=== PATIENT | female | born 1940 | race Caucasian/White ===

== ENCOUNTER → 2017-06-20 | Outpatient (CLI) | payer MEDICARE, MEDICAID ==
[2013-08-15 11:12] VITALS: BMI 40.5
[~2017-06-20] MED LIST: ACET500T68 PO; ASPI-757 PO; AZIT500T47 PO; BACDS PO; BUP100 PO; BUS10 PO; CAR350 PO; CLI150 PO; CYC10 PO; CYCL-332 PO; CYCL10TA29 PO; ENAL20TA99 PO; ENALAPRIL; FLUO-202 PO; GAB300 PO; GLUC-198 PO; HCTZ25 PO; HYDR-3250 PO; HYDR25CA13 PO; HYDROXYPAM PO; IBUP200C71 PO; LEVO50TA80 PO; LOR5 PO; LUTE20CA11 PO; MET500 PO; METFORMIN; METR-1 PO; MULT-785 PO; NIAC500C17 PO; OXYGEN; PRAV10TA45 PO; PRED-314 PO; PROZAC; RANI300C8 PO; SITA100T9 PO; TRAM-420 PO; TRAZ-133 PO; VIT1CAPS34 PO; [UNRECOGNIZED DRUG - CODE] PO
--- NOTE | 2017-06-20 13:27 | RADIOLOGY IMAGING REPORT ---
FACILITY: [facility] PATIENT NAME: Danae Bolton : 1940 MR: [id number] V: [id number] EXAM DATE: ORDERING PHYSICIAN: ALEENA GUNTER TECHNOLOGIST: Location: [facility] - [place] Patient: Danae Bolton : 1940 Visit/Account:[id number] Date of Sevice: 06/20/2017 THORACIC SPINE 3 VIEWS HISTORY: Pain COMPARISON: None FINDINGS: 3 views of the thoracic spine were obtained. The visualized vertebral bodies exhibit normal height without spondylolisthesis. No significant dege nerative changes. There is no evidence of compression fracture. There is no evidence of lytic or hai tic bony lesions. IMPRESSION: No acute fracture or spondylolisthesis. Report Dictated By: Gordon Leon at 06/20/2017 1:22 PM Report E-Signed By: Gordon Leon at 06/20/2017 1:23 PM WSN:[id number]
--- NOTE | 2017-06-20 13:33 | RADIOLOGY IMAGING REPORT ---
FACILITY: [facility] PATIENT NAME: Danae Bolton : 1940 MR: [id number] V: [id number] EXAM DATE: ORDERING PHYSICIAN: ALEENA GUNTER TECHNOLOGIST: [place] [facility] [place] Patient: Danae Bolton : 1940 Visit/Account:[id number] Date of Sevice: 06/20/2017 Study: Lumbar spine series Indication: Low back pain Comparison study: November 15, 2012 Findings: AP, lateral, and cone-down lateral views of the lumbar spine demonstrates the presence of a grade I anterolisthesis at the L4-5 level. This is new as compared to the previous study. There is n o evidence of compression fracture. There is mild degenerative disease present. There is no evidence of lytic or blastic bony lesion IMPRESSION: Grade I anterolisthesis at the L4-L5 level. This is new as compared to the previous study . Report Dictated By: Gordon Leon at 06/20/2017 1:25 PM Report E-Signed By: Gordon Leon at 06/20/2017 1:29 PM WSN:[id number]
--- NOTE | 2017-06-20 14:12 | RADIOLOGY IMAGING REPORT ---
FACILITY: [facility] [place] PATIENT NAME: Danae Bolton : 1940 MR: [id number] V: [id number] EXAM DATE: ORDERING PHYSICIAN: ALEENA GUNTER TECHNOLOGIST: Location: [facility] Patient: Danae Bolton : 1940 Visit/Account:[id number] Date of Sevice: 06/20/2017 CAROTID HISTORY: Bilateral carotid stenosis COMPARISON: February 16, 2014 FINDINGS: Grayscale, duplex and color Doppler interrogation of the extracranial carotid and vertebral arteries was performed bilateral. On the right, peak systolic velocities within the common and internal carotid arteries are 81 and 97. 4 cm/sec respectively. Mild to moderate amount of plaque is present the right carotid bulb extending into the proximal right internal carotid artery. Antegrade flow within the common, internal and ext ernal carotid arteries as well as vertebral artery. ICA/CCA ratio 1.3. On the left, peak systolic velocities within the common and internal carotid arteries are 111 and 123 cm/sec respectively. There is at least a moderate amount of plaque identified at the left carotid b ulb extending into the proximal left internal carotid artery. Antegrade flow within the common, inte rnal and external carotid arteries as well as vertebral artery. ICA/CCA ratio 1.6. IMPRESSION: There is a mild to moderate amount of plaque right carotid bulb extending into the proximal right int ernal carotid artery with peak systolic velocities consistent with less than 50% stenosis as opposed to a 50-75% stenosis previously Moderate amount of plaque at the left carotid bulb extending into the proximal left internal carotid artery. The peak systolic velocities in the left ICA are also consistent with a less than 50% stenos is as opposed to a 50-75% stenosis previously. The peak systolic velocity in the left carotid bulb is slightly elevated at 135 cm/s Velocity criteria are extrapolated from diameter data as defined by the Society of Radiologists in Ul trasound Consensus Conference Radiology 2003; 229;340-346 Report Dictated By: Jennie Mullins MD at 06/20/2017 2:02 PM Report E-Signed By: Jennie Mullins MD at 06/20/2017 2:09 PM WSN:[email or web address]
--- NOTE | 2017-06-23 08:48 | RADIOLOGY IMAGING REPORT ---
[place] [facility] [place]IENT NAME: SAMI CALDERON : [id number] MR: [id number] V: [id number] EXAM DATE: ORDERING PHYSICIAN: ALEENA GUNTER TECHNOLOGIST: Caro Ramirez EXAMINATION:TWO-DIMENSIONAL ECHOCARDIOGRAPH REASON:SYSTOLIC HEART MURMUR 2D Measurements (normal values in centimeters) LV endLV endRV endVent.LV PostAorticLeftPercent DiastolicSystolicDiastolicSeptumWallRootAtriumShortening (3.5-5.7)(0.9-2.6)(0.6-1.1)(0.6-1.1)(2.0-3.7)(1.9-4.0)(25-35%) [id number]% STROKE VOLUME: 66ml ESTIMATED EJECTION FRACTION: 54% PARASTERNAL LONG AXIS: Overall left ventricular systolic function appears to be normal. Chamber sizes are normal with the right ventricle being the upper range of normal in size. There is mild left ventricular thickening somewhat asymmetric more along the posterior wall but no evidence for any outflow tract obstruction. The aortic valve is mildly calcified but does not appear to be stenotic. Mitral valve appears to open normally. Color examination of the valves reveals a trace of mitral and tricuspid insufficiency. Color examination of the aortic valve was unremarkable. PARASTERNAL SHORT AXIS: Again overall left ventricular function appears to be normal. No specific wall motion abnormalities are noted. Aortic valve is trileaflet in configuration and appears to open normally. There is some aortic sclerosis. Color examination of pulmonic valve reveals a trace of pulmonic insufficiency. APICAL FOUR AND TWO CHAMBER: Normal left ventricular systolic function. Aortic valve area and mitral valve area both measure within normal ranges at 1.7 and 1.6cm2 respectively. The mean pressure gradient across the aortic valve is 9mm Hg. Dimensionless index is .8. Tricuspid regurgitation Vmax measure 1.7m/sec. Trace of tricuspid insufficiency is noted in this view. SUBCOSTAL VIEW: No pericardial effusion was noted. No atrioseptal or ventriculoseptal defects were appreciated. The TAPSE of the right ventricle is measured at 2.2 which was within normal ranges. The IVC is normal in size. Doppler examination of the mitral valve in diastole does reveal the A wave > E wave. OVERALL IMPRESSION: 1. Normal left ventricular ejection fraction of approximately 54% with a mild Grade 1 decrease in diastolic function. 2. Mild somewhat asymmetric left ventricular thickening more along the posterior wall but no evidence for any outflow tract obstruction. Chamber sizes are normal. 3. A sclerotic but not stenotic aortic valve. The valve area is measured at the lower range of normal 1.7cm2 with a mean pressure gradient of 9mm Hg and a dimensionless index of .8. 4. A trace of mitral, tricuspid and pulmonic insufficiency. The estimated right ventricular systolic pressures were measured within normal ranges at 15mm Hg. No other abnormalities were noted. Dictated by: Stacy Machuca M.D. on 06/20/2017 at 15:22 Transcribed by: JOSIAH on 06/23/2017 at 8:44 Approved by: Stacy Machuca M.D. on 06/23/2017 at 8:47 [facility]
== END ==
LOC: US 03:49
PROVIDERS: ATTEND Family Medicine
DX: I50.30 Unspecified diastolic (congestive) heart failure (principal); I51.7 Cardiomegaly; I25.10 Atherosclerotic heart disease of native coronary artery without angina pectoris; I34.0 Nonrheumatic mitral (valve) insufficiency; I07.1 Rheumatic tricuspid insufficiency; I37.1 Nonrheumatic pulmonary valve insufficiency
CPT/HCPCS: 72072; 72100; 93306; 93880

== ENCOUNTER 2017-12-05 09:45 | Outpatient (RCR) | payer MEDICARE, MEDICAID ==
[2013-08-15 11:12] VITALS: BMI 40.5
--- NOTE | 2017-09-09 08:25 | PT INITIAL EVALUATION ---
MEDICAL DIAGNOSIS: Chronic Low Back Pain TREATMENT DIAGNOSIS: Thoracic Pain, Decreased Posture DATE OF ONSET: 09/08/17 SUBJECTIVE: Danae is a 76 year-old female presenting to physical therapy following a recent increased in chronic back pain. Pt reports that she has had back pain for 20+ years and that it comes and goes. Recently it seems to be bothering her more and she has been feeling more restricted by it. Pt previously was taking muscle relaxants for it but is trying to work away from those. She reports that the pain sometimes will get so bad that she can't get out of bed rated at a 9/10 with radiating pain from the mid thoracic spine to the neck with occasional headaches as well as wrapping around the sides L>R to the stomach. Pt reports that heat seems to help as well as moving around more. Pain is worse with prolonged inactivity. Pt uses Tylenol currently every 4 hours to manage pain. Pain is currently rated as a 2-3/10 and is located in the thoracic spine and to the left side of her back only. REHAB PROBLEM LIST: Increased Pain Decreased ROM Decreased Function Decreased ADL's Decreased Mobility PREVIOUS MEDICAL HISTORY: See EMR OBJECTIVE: Posture: Posture significant for rounded forward shoulders with increased upper trapezius tension and shoulder elevation L>R. ROM: Thoracic ROM: Ext: minimally restricted "feels stiff", flex: full with muscle pull sensation, L rotation: minimally restricted with muscle tension, L rotation: full with muscle tension Palpation: Pt is tender to palpation from T2-T6 along the spine as well as out to the medial L scapular border. Pt has a slight R rotation of T3-5 vertebrae with L displacement of spinous processes. Sensation: Pt reports no numbness or tingling in B UE. Special Tests: Thoracic Repeated Movement Screen: Ext: pain centralized to T 2-4 , flex: pain periphrealized to T2-6 again, L rotation: pain centralized to T2-4 and in from scapular border, L rotation with ext: pain centralized to T3-4 in the thoracic spine only. ASSESSMENT: Danae shows signs and symptoms consistent with acute on chronic thoracic dysfunction. Physical therapy is indicated to address the above listed deficits in mobility, posture and pain to improve pt function with ADL's. Short Term Goals In 2 weeks pt will centralize pain to the thoracic spine only for decreased pain and improved function with ADL's. In 4 weeks pt will have no thoracic or cervical pain at rest for improved function with ADL's. In 4 weeks pt will improve thoracic ROM to without restrictions or pain for improved function with ADL's. In 4 weeks pt will be compliant with HEP for maintenance of chronic pain for improved function with ADL's. Patient's Goals Decrease pain. PLAN: Patient to be seen for Manual Therapy/STM/MET Strengthening/condition Ice/Heat Range of Motion Spinal Stabilization Ultrasound Stretching Iontophoresis Neuromuscular Re-ed Closed Chain Program Electrical Stim Posture/Body mechanics Biofeedback Home Exercise Program Mech./Manual Traction Therapeutic Activities 2-3x/Week for 4 Weeks If you have any questions, comments, or concerns about this report or plan, please contact me at . Thank you, Africa Matamoors, PT, DPT, CL MTDD
--- NOTE | 2017-10-24 09:23 | PT PLAN OF CARE ---
Physician: Frankie Atkins MD Patient is being seen: 2-3x/Week Therapist: Africa Matamoros, PT, DPT, CLT Medical Diagnosis: Chronic Low Back Pain Treatment Diagnosis: Thoracic Pain, Decreased Posture Date of Onset: 09/08/17 Date of Initial Evaluation: 09/08/17 Date patient was last seen: 10/23/17 Number of treatments: 12 Number of cancellations/No shows: 2 INTERVENTIONS: Manual Therapy/STM/MET Strengthening/condition Ice/Heat Range of Motion Spinal Stabilization Ultrasound Stretching Iontophoresis Neuromuscular Re-ed Closed Chain Program Electrical Stim Posture/Body mechanics Biofeedback Home Exercise Program Mech./Manual Traction Therapeutic Activities GOALS: In 2 weeks pt will centralize pain to the thoracic spine only for decreased pain and improved function with ADL's. MET In 4 weeks pt will have no thoracic or cervical pain at rest for improved function with ADL's. In 4 weeks pt will improve thoracic ROM to without restrictions or pain for improved function with ADL's. In 4 weeks pt will be compliant with HEP for maintenance of chronic pain for improved function with ADL's. PATIENT'S GOAL: Decrease pain. Status of Patient's Goals: 03/13 MET Patient Compliance: Fair Prognosis: Good Reasons for continuing therapy: Danae shows excellent progress with reduction of pain and centralization of symptoms with repeated L thoracic mobility. However, progress is inconsistent at home secondary to changing compliance with HEP. Following last PT session pt reported pain absent at the end of session except with palpation and only at the T4-5 level. Pt shows improved thoracic mobility with increased core stability as well for performance of ADL's. Posture: Posture significant for rounded forward shoulders with increased upper trapezius tension and shoulder elevation L>R. ROM: Thoracic ROM: Ext: minimally restricted "feels stiff", flex: full with muscle pull sensation, L rotation: minimally restricted with muscle tension, L rotation: full with muscle tension Palpation: Pt is tender to palpation from T2-T6 along the spine as well as out to the medial L scapular border. Pt has a slight R rotation of T3-5 vertebrae with L displacement of spinous processes. Special Tests: Thoracic Repeated Movement Screen: Ext: pain centralized to T 2-4 , flex: pain periphrealized to T2-6 again, L rotation: pain centralized to T2- 4 and in from scapular border, L rotation with ext: pain centralized to T3-4 in the thoracic spine only. If you have any questions or concerns, please feel free to contact me at . Thank you, Africa Matamoros, PT, DPT, CLT ENRIQUED
--- NOTE | 2017-11-24 10:52 | PT PLAN OF CARE ---
Physician: Frankie Atkins MD Patient is being seen: 2-3x/Week Therapist: Africa Matamoros, PT, DPT, CLT Medical Diagnosis: Chronic Low Back Pain Treatment Diagnosis: Thoracic Pain, Decreased Posture Date of Onset: 09/08/17 Date of Initial Evaluation: 09/08/17 Date patient was last seen: 11/24/17 Number of treatments: 21 Number of cancellations/No shows: 3 INTERVENTIONS: Manual Therapy/STM/MET Strengthening/condition Ice/Heat Range of Motion Spinal Stabilization Ultrasound Stretching Iontophoresis Neuromuscular Re-ed Closed Chain Program Electrical Stim Posture/Body mechanics Biofeedback Home Exercise Program Mech./Manual Traction Therapeutic Activities GOALS: In 2 weeks pt will centralize pain to the thoracic spine only for decreased pain and improved function with ADL's. MET In 4 weeks pt will have no thoracic or cervical pain at rest for improved function with ADL's. In 4 weeks pt will improve thoracic ROM to without restrictions or pain for improved function with ADL's. MET In 4 weeks pt will be compliant with HEP for maintenance of chronic pain for improved function with ADL's. PATIENT'S GOAL: Decrease pain. Improve strength Status of Patient's Goals: 2/4 MET Patient Compliance: Fair Prognosis: Good Reasons for continuing therapy: Danae continues to show progress with pain either resolved or fairly minimal and resolving with repeated L thoracic rotation. Pt has started strengthening of the thoracic and shoulder girdle with good progress without pain. Pt required minimal cuing on posture occasionally including core activation with lifting and decreasing B scapular elevation. Further PT to progress pt to independent HEP for maintenance of condition for preparation of discharge. ROM: Thoracic ROM: Full in all directions with tightness at end range with L thoracic rotation Palpation: Pt is tender to palpation at T5. Pt has a slight R rotation of T4-5 vertebrae with L displacement of spinous processes. If you have any questions or concerns, please feel free to contact me at [phone]. Thank you, Africa Matamoros, PT, DPT, CLT [facility]
[~2017-12-05 09:45] MED LIST changes: +IBUP-136 PO; -IBUP200C71 PO
== END 2017-12-07 ==
LOC: PT 09:45
PROVIDERS: ATTEND Family Medicine
DX: M54.5 Low back pain (principal); M54.6 Pain in thoracic spine
CPT/HCPCS: 97161

== ENCOUNTER 2017-12-19 11:17 | Outpatient (RCR) | payer MEDICARE, MEDICAID ==
[2013-08-15 11:12] VITALS: BMI 40.5
--- NOTE | 2017-12-11 09:45 | PT PLAN OF CARE ---
Physician: Frankie Atkins MD Patient is being seen: 2-3x/Week Therapist: Africa Matamoros, PT, DPT, CLT Medical Diagnosis: Chronic Low Back Pain Treatment Diagnosis: Thoracic Pain, Decreased Posture Date of Onset: 09/08/17 Date of Initial Evaluation: 09/08/17 Date patient was last seen: 12/11/17 Number of treatments: 25 Number of cancellations/No shows: 3 INTERVENTIONS: Manual Therapy/STM/MET Strengthening/condition Ice/Heat Range of Motion Spinal Stabilization Ultrasound Stretching Iontophoresis Neuromuscular Re-ed Closed Chain Program Electrical Stim Posture/Body mechanics Biofeedback Home Exercise Program Mech./Manual Traction Therapeutic Activities GOALS: In 2 weeks pt will centralize pain to the thoracic spine only for decreased pain and improved function with ADL's. MET In 4 weeks pt will have no thoracic or cervical pain at rest for improved function with ADL's. In 4 weeks pt will improve thoracic ROM to without restrictions or pain for improved function with ADL's. MET In 4 weeks pt will be compliant with HEP for maintenance of chronic pain for improved function with ADL's. PATIENT'S GOAL: Decrease pain. Improve strength Status of Patient's Goals: 2/4 MET Patient Compliance: Fair Prognosis: Good Reasons for continuing therapy: Fink shows full reductions of pain at this time with improved associated muscular activation. Further PT to continue for the next week to work on gains in muscular strength and scapular mobility as well as thoracic stability. Pt to be discharged in 1 week following progression to independent HEP. ROM: Thoracic ROM: Full in all directions with tightness at end range with L thoracic rotation Palpation: Pt is tender to palpation at T5. Pt has a slight R rotation of T4-5 vertebrae with L displacement of spinous processes. If you have any questions or concerns, please feel free to contact me at [phone]. Thank you, Africa Matamoros, PT, DPT, CLT ASHLEY
--- NOTE | 2017-12-19 17:11 | PT PLAN OF CARE ---
Physician: Frankie Atkins MD Patient is being seen: 2-3x/Week Therapist: Africa Matamoros, PT, DPT, CLT Medical Diagnosis: Chronic Low Back Pain Treatment Diagnosis: Thoracic Pain, Decreased Posture Date of Onset: 09/08/17 Date of Initial Evaluation: 09/08/17 Date patient was last seen: 12/19/17 Number of treatments: 28 Number of cancellations/No shows: 3 INTERVENTIONS: Manual Therapy/STM/MET Strengthening/condition Ice/Heat Range of Motion Spinal Stabilization Ultrasound Stretching Iontophoresis Neuromuscular Re-ed Closed Chain Program Electrical Stim Posture/Body mechanics Biofeedback Home Exercise Program Mech./Manual Traction Therapeutic Activities GOALS: In 2 weeks pt will centralize pain to the thoracic spine only for decreased pain and improved function with ADL's. MET In 4 weeks pt will have no thoracic or cervical pain at rest for improved function with ADL's. MET In 4 weeks pt will improve thoracic ROM to without restrictions or pain for improved function with ADL's. MET In 4 weeks pt will be compliant with HEP for maintenance of chronic pain for improved function with ADL's. MET PATIENT'S GOAL: Decrease pain. Improve strength Status of Patient's Goals: 4/4 MET Patient Compliance: Fair Prognosis: Good Reasons for discharge from therapy: Danae is to discharge from physical therapy at this time secondary to completion of 4/4 functional goals. At the time of discharge, pt shows full reductions of pain at this time with improved associated muscular activation. Additionally pt started on independent strengthening program to maintain reductions in pain as well as improve UE function with ADL's. Pt is to seek further PT if symptoms recur. ROM: Thoracic ROM: Full in all directions with tightness at end range with L thoracic rotation If you have any questions or concerns, please feel free to contact me at [phone]. Thank you, Africa Matamoros, PT, DPT, CLT MTDD
== END 2018-03-09 ==
LOC: PT 11:17
PROVIDERS: ATTEND Family Medicine
DX: M54.5 Low back pain (principal)